=== PATIENT | female | born 1955 | race Caucasian/White ===

== ENCOUNTER 2021-06-29 18:05 | Inpatient (IN) | payer MEDICARE ==
[~2021-06-29] VITALS: Ht 172.7 cm; Wt 78.9 kg
[2021-06-29 18:22] VITALS: BP 107/70
[2021-06-29 18:45] LABS: HEMATOCRIT 37.6 % (37.0-47.0); HEMOGLOBIN 12.2 gm/dL (12.0-15.0); MCHC 32.5 g/dL (28.0-37.0); MPV 8.9 fl. (7.2-11.1); NUCLEATED RBCS 0 /100WBC; PLATELET COUNT* 76 thou/uL (150-400); RBC 4.53 mil/uL (4.20-5.00); RDW-CV 14.4 % (10.5-14.5); WBC 21.2 thou/uL (4.0-11.0)
[2021-06-29 18:47] LABS: CALCIUM 8.5 mg/dL (8.5-10.1)
[2021-06-29 18:52] LABS: ALBUMIN 2.1 g/dL (3.4-5.0); TOTAL BILIRUBIN 1.1 mg/dL (<0.1-1.0); TOTAL PROTEIN 7.5 g/dL (6.4-8.2)
[2021-06-29 19:29] LABS: ABSOLUTE LYMPHOCYTES 1.9 thou/uL (0.8-5.3); ABSOLUTE MONOCYTES 0.2 thou/uL (0.0-1.2); ABSOLUTE NEUTROPHILS 19.1 thou/uL (1.6-8.1); PLATELET ESTIMATE ADEQUATE
[2021-06-29 19:39] LABS: INR 1.4; PROTIME 14.4 Seconds (9.20-11.50)
[2021-06-30] VITALS (12 sets, daily range): BP systolic 90–125; BP diastolic 50–76
[2021-06-30 00:17] LABS: BE 1.8 mmol/L (-2 to +3); PCO2 31.3 mmHg (35.0-45.0); pH 7.508 (7.340-7.450)
--- NOTE | 2021-06-30 15:08 | CON ---
[address] [address] CONSULTATION Name: EARLENE SRIVASTAVA Room: [address] IN M.R.#: [id number] Admission: 06/30/21 Attend Phys: Jeannie Nguyen MD Discharge: Date of : 53 Report #: [id number] THIS REPORT FOR: cc: [facility] - Clinic physician unknown [facility] - Clinic physician unknown Lazarus Chaves MD [facility] ~ INDICATION: SVT. HISTORY OF PRESENT ILLNESS: The patient is a 65-year-old white female admitted through the emergency room with cough and shortness of breath. Initial COVID-19 test rapid detection was negative. PCR test pending. She has been sick for 5 days now. She denies any prior cardiac history. She is on no medications. She denies allergies. She is presently in SVT with a heart rate of 192 beats per minute. She has some mild chest pressure, but no other significant symptoms with this. Chest x-ray is highly suspicious for COVID-19. PCR test pending. PAST MEDICAL HISTORY: Frozen right hip. REVIEW OF SYSTEMS: Positive for cough that is minimally productive, dyspnea, mild shortness of breath, chest pressure, otherwise unremarkable. PHYSICAL EXAMINATION: VITAL SIGNS: Blood pressure 107/70, pulse is 192. GENERAL: This is a pleasant female who is in no distress. Mood and affect appropriate. HEENT: Normocephalic, atraumatic. Extraocular muscles intact. Mucous membranes moist. NECK: Shows no jugular venous distention. CHEST: Diminished bilaterally with expiratory wheezes. CARDIAC: Tachycardic without obvious gallop or murmur. ABDOMEN: Soft and nontender. Bowel sounds present. EXTREMITIES: Trace ankle edema. LABORATORY DATA: Reviewed. Troponins are negative x 3 sets. EKG when she is not in SVT shows a sinus rhythm without acute ST or T-wave abnormalities. Chest x-ray shows patchy infiltrates diffusely. IMPRESSION AND RECOMMENDATIONS: 1. SVT. The patient had transient return to sinus rhythm after Adenocard boluses. We will treat with flecainide initial dose 200 mg to attempt medical cardioversion. She is on a diltiazem drip presently. [place] [address] CONSULTATION Name: SRIVASTAVAEARLENE J Room: [address] IN [facility]#: [id number] Admission: 06/30/21 Attend Phys: Jeannie Nguyen MD Discharge: Date of : 53 Report #: [id number] now. Echocardiogram will be ordered and is pending. 2. Bilateral diffuse pneumonia, likely COVID-19. Per hospitalist and pulmonology staff. <ELECTRONICALLY SIGNED> By: Lazarus Chaves MD, [facility] 06/30/21 1508 1013 [address] Chaves MD, FACC /nt
--- NOTE | 2021-06-30 15:26 | EKG ---
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: PEDRO LUIS : 1955 Requested By: Grover Juarez Order Number: [id number] MD: Lazarus Chaves Measurements Intervals [place] Rate: 192 P: 31 MA: 69 QRS: 21 QRSD: 80 T: 251 QT: 234 QTc: 418 Interpretive Statements Supraventricular tachycardia Abnormal R-wave progression, late transition Abnormal lateral Q waves Repolarization abnormality, prob rate related No previous ECG available for comparison Electronically Signed On 06-30-2021 15:25:55 CDT by Lazaurs Chaves [email or web address] <ELECTRONICALLY SIGNED> By: Lazarus Chaves MD, FAC 06/30/21 1525 1820 1820 Lazarus Chaves MD, [facility] /EPI
--- NOTE | 2021-06-30 15:26 | EKG ---
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 LUIS : 1955 Requested By: Grover Juarez Order Number: [id number] MD: Lazarus Chaves Measurements Intervals [place] Rate: 106 P: 22 IA: 138 QRS: -7 QRSD: 96 T: 22 QT: 373 QTc: 496 Interpretive Statements Sinus tachycardia Atrial premature complexes Probable left atrial enlargement Borderline prolonged QT interval Compared to ECG 06/29/2021 18:20:49 Atrial premature complex(es) now present Supraventricular tachycardia no longer present Q waves no longer present Early repolarization no longer present Electronically Signed On 06-30-2021 15:26:02 CDT by Lazarus Chaves [email or web address] <ELECTRONICALLY SIGNED> By: Lazarus Chaves MD, [facility] 06/30/21 1526 53 [phone] Lazarus Chaves MD, [facility] /EPI
[2021-07-01] VITALS: BP 97/56
[2021-07-01 04:00] VITALS: BP 103/57
[2021-07-01 04:24] LABS: HEMATOCRIT 30.7 % (37.0-47.0); MCH 27.4 pg (26.0-34.0); MCHC 32.4 g/dL (28.0-37.0); MCV 84.6 fL (80.0-100.0); MPV 8.5 fl. (7.2-11.1); RBC 3.63 mil/uL (4.20-5.00); WBC 14.9 thou/uL (4.0-11.0)
[2021-07-01 04:46] LABS: CALCIUM 7.7 mg/dL (8.5-10.1); CREATININE 0.9 mg/dL (0.6-1.3); POTASSIUM 3.1 mmol/L (3.5-5.1)
[2021-07-01 07:45] VITALS: BP 102/62
[2021-07-01 12:38] VITALS: BP 97/57
--- NOTE | 2021-07-01 15:50 | 2DMMODE ---
[place] [address] 2 D/M-MODE ECHOCARDIOGRAM Name: SRIVASTAVAEARLENE J Room: [address] IN .R.#: [id number] Admission: 06/30/21 Attend Phys: Jeannie Nguyen, Discharge: Date of : 53 Date of Service: 07/01/21 1549 Report #: [id number] THIS REPORT FOR: cc: [facility] - Clinic physician unknown [facility] - Clinic physician unknown Kaveh Funes MD [facility] ~ APPROVED REPORT Study performed: 07/01/2021 10:06:38 EXAM: Comprehensive 2D, Doppler, and color-flow Echocardiogram Patient Location: In-Patient Room #: [facility] Status: routine BSA: 1.92 HR: 87 bpm BP: 102/62 mmHg Rhythm: NSR Other Information Study Quality: Good Indications svt 2D Dimensions IVSd: 9.22 (7-11mm) LVOT Diam: 21.77 (18-24mm) LVDd: 40.42 mm PWd: 9.01 (7-11mm) Ascending Ao: 26.37 (22-36mm) LVDs: 27.14 (25-40mm) Aortic Root: 26.20 mm Volumes Left Atrial Volume (Systole) LA ESV Index: 28.20 mL/m2 Aortic Valve AoV Peak Karthikeyan.: 1.72 m/s AO Peak Gr.: 11.88 mmHg LVOT Max P.83 mmHg AO Mean Gr.: 6.61 mmHg LVOT Mean P.83 mmHg LVOT Max V: 1.21 m/s AO V2 VTI: 31.24 cm LVOT Mean V: 0.76 m/s AFUA (VTI): 3.02 cm2 LVOT V1 VTI: 25.33 [place] [address] 2 D/M-MODE ECHOCARDIOGRAM Name: EARLENE SRIVASTAVA Room: [address] IN M.R.#: [id number] Admission: 06/30/21 Attend Phys: Jeannie Nguyen, Discharge: Date of : 53 Date of Service: 07/01/21 1549 Report #: [id number] Mitral Valve E/A Ratio: 2.53 MV Decel. Time: 171.97 ms MV E Max Karthikeyan.: 1.03 m/s MV PHT: 49.87 ms MVA (PHT): 4.41 cm2 TDI E/Lateral E': 6.87 E/Medial E': 7.92 Medial E' Karthikeyan.: 0.13 m/s Lateral E' Karthikeyan.: 0.15 m/s Pulmonary Valve PV Peak Karthikeyan.: 0.94 m/s PV Peak Gr.: 3.52 mmHg Tricuspid Valve RAP Estimate: 5.00 mmHg TR Peak Gr.: 23.90 mmHg RVSP: 28.00 mmHg PA Pressure: 28.00 mmHg Left Ventricle The left ventricle is normal size. There is normal LV segmental wall motion. There is normal left ventricular wall thickness. Left ventricular systolic function is normal. The left ventricular ejection fraction is within the normal range. LVEF is 60-65%. Right Ventricle The right ventricle is normal size. The right ventricular systolic function is normal. Atria The left atrium size is normal. The right atrium size is normal. Aortic Valve The aortic valve is normal in structure. No aortic regurgitation is present. There is no aortic valvular stenosis. Mitral Valve The mitral valve is normal in structure. Mild mitral regurgitation. No evidence of mitral valve stenosis. Tricuspid Valve The tricuspid valve is normal in structure. Trace tricuspid regurgitation. [place] [address] 2 D/M-MODE ECHOCARDIOGRAM Name: EARLENE SRIVASTAVA Room: [address] IN [facility]#: [id number] Admission: 06/30/21 Attend Phys: Jeannie Nguyen, Discharge: Date of : 53 Date of Service: 07/01/21 1549 Report #: [id number] Pulmonic Valve The pulmonary valve is normal in structure. There is no pulmonic valvular regurgitation. Great Vessels The aortic root is normal in size. IVC is normal in size and collapses >50% with inspiration. Pericardium There is no pericardial effusion. <Conclusion> The left ventricle is normal size. There is normal left ventricular wall thickness. Left ventricular systolic function is normal. The left ventricular ejection fraction is within the normal range. LVEF is 60-65%. The right ventricle is normal size. The left atrium size is normal. The aortic valve is normal in structure. The mitral valve is normal in structure. Mild mitral regurgitation. The tricuspid valve is normal in structure. IVC is normal in size and collapses >50% with inspiration. There is no pericardial effusion. There is normal LV segmental wall motion. <ELECTRONICALLY SIGNED> By: Kaveh Funes MD, FACC 07/01/21 1549 1549 1549 Kaveh Funes MD, FACC /INF
[2021-07-01 16:03] VITALS: BP 107/60
--- NOTE | 2021-07-01 17:00 | EKG ---
[place] [address] ELECTROCARDIOGRAM REPORT Name: EARLENE SRIVASTAVA Room: [address] ADM IN .R.#: [id number] Admission: 06/30/21 Attend Phys: Jeannie Nguyen, Discharge: Date of : 53 Date of Service: 06/30/21 0936 Report #: [id number] THIS REPORT FOR: //name// [facility] ED Test Date: 2021-06-30 Test Time: 09:36:20 Pat Name: EARLENE SRIVASTAVA Department: Room: [address] Gender: F Graduate Fellow: BRODY : 1955 Requested By: Grover Juarez Order Number: [id number] Zeeshan MD: Kaveh Funes Measurements Intervals [place] Rate: 189 P: 0 UT: 98 QRS: 21 QRSD: 77 T: 245 QT: 249 QTc: 442 Interpretive Statements Supraventricular tachycardia Low voltage, precordial leads Repolarization abnormality, prob rate related Compared to ECG 06/29/2021 18:54:26 Low QRS voltage now present Early repolarization now present SVT has developed Electronically Signed On 07-01-2021 17:00:51 CDT by Kaveh Funes [email or web address] <ELECTRONICALLY SIGNED> By: Kaveh Funes MD, [facility] 07/01/21 1700 0936 0936 Kaveh Funes MD, FAC /EPI
[2021-07-02 00:31] VITALS: BP 98/61
[2021-07-02 04:56] VITALS: BP 98/62
[2021-07-02 06:38] LABS: HEMATOCRIT 28.5 % (37.0-47.0); HEMOGLOBIN 9.2 gm/dL (12.0-15.0); MCH 27.3 pg (26.0-34.0); MCHC 32.4 g/dL (28.0-37.0); MCV 84.3 fL (80.0-100.0); MPV 8.4 fl. (7.2-11.1); RBC 3.38 mil/uL (4.20-5.00); WBC 13.2 thou/uL (4.0-11.0)
[2021-07-02 06:44] LABS: CALCIUM 7.7 mg/dL (8.5-10.1); CREATININE 0.7 mg/dL (0.6-1.3)
[2021-07-02 08:10] VITALS: BP 101/60
[2021-07-02] MEDS ORDERED: AZITHROMYCIN 2250 MG PO (11:08)
[2021-07-02] MEDS ORDERED: FLECAINIDE ACET50 M1 PO (11:56)
[2021-07-02] MEDS ORDERED: DILTIAZEM 24HR180 M1 PO (11:56)
[2021-07-02 12:31] VITALS: BP 104/61
[2021-07-02 13:23] VITALS: BP 104/61
[2021-07-02 14:10] VITALS: BP 104/61
== END 2021-07-02 14:05 | disposition home or self-care (01) | DRG 871 ==
LOC: M.ERS 18:05 → M.TBA-ER 06-30 01:03 → M.ORTHSURG 06-30 01:03
PROVIDERS: Emergency Medicine Emergency Medical Services; Family Medicine; Personal Emergency Response Attendant; ADMIT Internal Medicine; ATTEND Internal Medicine
DX: A41.9 Sepsis, unspecified organism (principal); J96.01 Acute respiratory failure with hypoxia; J15.9 Unspecified bacterial pneumonia; I47.1 Supraventricular tachycardia; E87.6 Hypokalemia; Z20.822 Contact with and (suspected) exposure to COVID-19